=== PATIENT | male | born 1945 | race Caucasian/White ===

== ENCOUNTER 2018-11-05 15:06 | Emergency (ER) | payer OTHER ==
--- NOTE | 2018-11-05 15:09 | EDPHY ---
H & P Time Seen by Provider: 11/05/18 15:12 - Medical/Surgical History Hx Asthma: No Hx Chronic Respiratory Disease: No Hx Diabetes: Yes Hx Cardiac Disease: No Hx Renal Disease: No Hx Cirrhosis: No Hx Alcoholism: No Hx HIV/AIDS: No Hx Splenectomy or Spleen Trauma: No Other PMH: DM, HTN, CHF, - Social History Smoking Status: Former smoker Constitutional: Initial Vital Signs Temperature (C) 36.6 C 11/05/18 15:06 Heart Rate 76 11/05/18 15:06 Respiratory Rate 18 11/05/18 15:06 Blood Pressure 155/95 H 11/05/18 15:06 O2 Sat (%) 98 11/05/18 15:06 O2 Delivery Mode Nasal Cannula O2 (L/minute) 2 Allergies/Adverse Reactions: Penicillins Allergy (Verified 04/13/16 16:08) prazosin Allergy (Verified 04/13/16 16:14) Home Medications: Medication Instructions Recorded Acetaminophen [Tylenol 325mg (*)] 650 mg PO Q6 PRN 04/13/16 Aspirin [Aspirin 81mg (*)] 81 mg PO BID 04/13/16 Clindamycin 150 mg PO DAILY PRN 04/13/16 Finasteride [Proscar 5 MG (*)] 5 mg PO DAILY 04/13/16 Herbals/Supplements -Info Only 1 ea PO DAILY 04/13/16 Hydrocodone/Acetaminophen [[place] 1 - 2 tab PO Q6H PRN 04/13/16 5/325 (*)] Insulin NPH Human [humULIN N 100 35 units SC DAILY@00 PRN 04/13/16 UNITS/ML (*)] Insulin NPH Human [humULIN N 100 35 units SC DAILY@08 04/13/16 UNITS/ML (*)] Insulin Regular, Human [HUMULIN R] 35 unit SC DAILY18 04/13/16 Lisinopril [Zestril 20 mg (*)] 40 mg PO BID 04/13/16 Magnesium Oxide [Magnesium Oxide 400 mg PO HS 04/13/16 400 mg (*)] Multivitamins [Multivitamin (*)] 1 each PO DAILY 04/13/16 [place]-3 Fatty Acids [Fish Oil 1000 1,000 mg PO DAILY 04/13/16 mg (*)] Simvastatin [Zocor] 20 mg PO HS 04/13/16 Tamsulosin HCl [Flomax 0.4 MG (*)] 0.8 mg PO DAILY 04/13/16 Triamterene/Hydrochlorothiazid 1 each PO DAILY 04/13/16 [Triamterene-Hctz 37.5-25 mg Tb] amLODIPine BESYLATE [Norvasc 10 mg 10 mg PO DAILY 04/13/16 (*)] diphenhydrAMINE [Benadryl 25 MG 25 mg PO HS PRN 04/13/16 (*)] glipiZIDE [Glipizide] 10 mg PO BID 04/13/16 Acetaminophen [Tylenol 325mg (*)] 650 mg PO Q6 #0 tab 04/15/16 Docusate Sodium [Colace 100 MG (*)] 100 mg PO BID #0 cap 04/15/16 celeCOXIB [Celebrex (*)] 200 mg PO DAILY #14 cap 04/15/16 oxyCODONE IR [Oxycodone Ir (*)] 5 - 10 mg PO Q4 PRN #10 tab 04/15/16 Medical Decision Making - Diagnostics Imaging Results: Imaging Impressions Hip X-Ray 11/05/18 15:15 Impression: Acute minimally displaced proximal left femur fracture along the femoral stem of left total hip arthroplasty. Chest X-Ray 11/05/18 15:17 Impression: 1. Mild cardiac silhouette enlargement, with no evidence of CHF or focal infiltrate. 2. Age-indeterminate type III sprain injury of the left acromioclavicular joint. Clinical correlation is suggested. Pelvis CT 11/05/18 15:32 Impression: Status post prior remote left hip arthroplasty, with evidence of an acute longitudinally-oriented oblique partially comminuted and mildly displaced fracture adjacent to the left femoral intramedullary parveen. Findings were discussed with Arnie Mccrary MD at 16:43, on 11/05/2018. Imaging: I viewed and interpreted images myself ED Course/Re-evaluation: CHIEF COMPLAINT: "My right leg is fucked" HISTORY OF PRESENT ILLNESS: The patient is a 73 y/o male with a history of diabetes, chronic kidney disease, and prior left hip arthroplasty who arrives via EMS complaining of right hip pain secondary to a fall this afternoon. Per EMS, he tripped and fell in a parking lot and was on the ground for approximately 30 minutes before he called for assistance to get up. When they assisted him to standing he complained of severe right hip pain and could not bear weight. He denied head strike, loss of consciousness, or other injuries from the fall. No weakness or paresthesias. He received 10mg IM morphine en route for pain. He denies anticoagulants. REVIEW OF SYSTEMS: A comprehensive 10 system review of systems is otherwise negative aside from elements mentioned in the history of present illness and medical decision making. PHYSICAL EXAM: HR, BP, O2 Sat, RR. Temp noted General Appearance: Alert, well hydrated, appropriate, and non-toxic appearing. Head: Atraumatic without scalp tenderness or obvious injury Eyes: Pupils equal, round, reactive to light and accommodation, EOMI, no trauma , no injection. Nose: Atraumatic, no rhinorrhea, clear. Throat: Mucus membranes moist. Neck: Supple,nontender, no lymphadenopathy. Respiratory: No retractions, no distress, no wheezes, and no accessory muscle use. Lungs are clear to auscultation bilaterally. Cardiovascular: Regular rate and rhythm, no murmurs, rubs, or gallops. Good capillary refill all extremities. Right dorsalis pedis pulse intact. Gastrointestinal: Abdomen is soft, nontender, non-distended, no masses, no rebound, no guarding, no peritoneal signs. Musculoskeletal: Right leg slightly rotated externally, pain with ROM. 2+ lower extremity edema bilaterally with overlying cellulitis. Right knee abrasion. Other extremities atraumatic. Neurological: Alert, appropriate, and interactive. Nonfocal. Skin: No rashes, good turgor, no nodules on palpation. Past medical history: Diabetes type II on insulin, hypertension, BPH, chronic kidney disease, kidney stones, left subcapital hip fracture Past surgical history: Lithotripsy, left TKA, appendectomy, left total hip arthroplasty 2015 Family history: Noncontributory Social history: Lives in [place]. . Retired. PCP: Leandro Prior medical records reviewed including admission 04/13/16 for left hip fracture. DIAGNOSTICS/PROCEDURES/CRITICAL CARE TIME: Pelvis x-ray: no definite fracture Left hip x-ray: periprosthetic femur fracture Chest x-ray: no infiltrate Pelvis CT: left periprosthetic fracture DIFFERENTIAL DIAGNOSIS: The differential diagnosis for the patient's trauma included but was not limited to intracranial injury, long bone and pelvic bone fractures, spinal injury, intra-abdominal injury, and intra-thoracic injury. MEDICAL DECISION MAKING: This is a 73 y/o male with several comorbidities who presents with right hip pain secondary to a mechanical fall on the snow this afternoon. His right leg is slightly rotated externally and painful with any movement. He is neurovascularly intact. He has bilateral pedal edema below the level of the knee with overlying cellulitis. Plan for IV, labs, pelvis x-ray, and symptomatic management as needed. 100mg IV Fentanyl ordered for pain. As x-ray techs are taking imaging, patient complains of left hip pain rather than right hip pain. Initial pelvis x-ray shows possible ramus fracture, though it's inconclusive. Pelvis CT ordered for better evaluation as patient is a poor historian. Left hip x-ray shows periprosthetic fracture. Creatinine is 1.7. Consulted with Dr. Burns, orthopedist. He has reviewed images and will assess patient in the ED. Spoke with [facility]. Awaiting their decision on treatment here vs. transfer. 1624: Spoke with [facility]. Dr. Lawrence Chavez is the accepting physician and Dr. Silva will be the accepting orthopedist. Dr. Burns assessed patient in the ED and feels right leg and hip exam is benign. - Data Points Laboratory Results: Laboratory Results 11/05/18 15:40 11/05/18 15:40 11/05/18 11/05/18 11/05/18 15:43 15:40 15:40 WBC RBC Hgb POC Hgb 11.9 gm/dL L gm/dL (13.7-17.5) Hct POC Hct 35 % L % (40-51) MCV MCH MCHC RDW Plt Count MPV Neut % (Auto) Lymph % (Auto) [place] % (Auto) Eos % (Auto) Baso % (Auto) Nucleat RBC Rel Count Absolute Neuts (auto) Absolute Lymphs (auto) Absolute Monos (auto) Absolute Eos (auto) Absolute Basos (auto) Absolute Nucleated RBC Immature Gran % Immature Gran # PT 14.9 SEC SEC (12.0-15.0) INR 1.15 (0.83-1.16) APTT 26.4 SEC SEC (23.0-38.0) POC Sodium 143 mEq/L mEq/L (135-145) Sodium 139 mEq/L mEq/L (135-145) POC Potassium 3.9 mEq/L mEq/L (3.3-5.0) Potassium 4.1 mEq/L mEq/L (3.5-5.2) POC Chloride 107 mEq/L mEq/L (97-110) Chloride 110 mEq/L mEq/L (97-110) Carbon Dioxide 23 mEq/l mEq/l (22-31) Anion Gap 6 mEq/L mEq/L (6-14) POC BUN 28 mg/dL H mg/dL (7-23) BUN 32 mg/dL H mg/dL (7-23) Creatinine 1.7 mg/dL H mg/dL (0.7-1.3) POC Creatinine 1.7 mg/dL H mg/dL (0.7-1.3) Estimated GFR 40 Glucose 102 mg/dL H mg/dL (70-100) POC Glucose 103 mg/dL H mg/dL (70-100) Calcium 10.8 mg/dL H mg/dL (8.5-10.4) Phosphorus 2.7 mg/dL mg/dL (2.5-4.5) 11/05/18 15:40 WBC 8.90 10^3/uL 10^3/uL (3.80-9.50) RBC 4.01 10^6/uL L 10^6/uL (4.40-6.38) Hgb 11.7 g/dL L g/dL (13.7-17.5) POC Hgb Hct 35.1 % L % (40.0-51.0) POC Hct MCV 87.5 fL fL (81.5-99.8) MCH 29.2 pg pg (27.9-34.1) MCHC 33.3 g/dL g/dL (32.4-36.7) RDW 13.7 % % (11.5-15.2) Plt Count 255 10^3/uL 10^3/uL (150-400) MPV 8.8 fL fL (8.7-11.7) Neut % (Auto) 80.2 % H % (39.3-74.2) Lymph % (Auto) 13.1 % L % (15.0-45.0) Fisher % (Auto) 4.5 % % (4.5-13.0) Eos % (Auto) 1.0 % % (0.6-7.6) Baso % (Auto) 0.6 % % (0.3-1.7) Nucleat RBC Rel Count 0.0 % % (0.0-0.2) Absolute Neuts (auto) 7.14 10^3/uL H 10^3/uL (1.70-6.50) Absolute Lymphs (auto) 1.17 10^3/uL 10^3/uL (1.00-3.00) Absolute Monos (auto) 0.40 10^3/uL 10^3/uL (0.30-0.80) Absolute Eos (auto) 0.09 10^3/uL 10^3/uL (0.03-0.40) Absolute Basos (auto) 0.05 10^3/uL 10^3/uL (0.02-0.10) Absolute Nucleated RBC 0.00 10^3/uL 10^3/uL (0-0.01) Immature Gran % 0.6 % % (0.0-1.1) Immature Gran # 0.05 10^3/uL 10^3/uL (0.00-0.10) PT INR APTT POC Sodium Sodium POC Potassium Potassium POC Chloride Chloride Carbon Dioxide Anion Gap POC BUN BUN Creatinine POC Creatinine Estimated GFR Glucose POC Glucose Calcium Phosphorus Medications Given: Discontinued Medications Fentanyl (Sublimaze) 100 mcg IVP EDNOW ONE Stop: 11/05/18 15:34 Last Admin: 11/05/18 15:33 Dose: 100 mcg Sodium Chloride (Ns) 1,000 mls @ 0 mls/hr IV EDNOW ONE; Wide Open PRN Reason: Protocol Stop: 11/05/18 15:49 Last Admin: 11/05/18 15:49 Dose: 1,000 mls Point of Care Test Results: Chemistry 11/05/18 15:43 POC Sodium 143 mEq/L mEq/L (135-145) POC Potassium 3.9 mEq/L mEq/L (3.3-5.0) POC Chloride 107 mEq/L mEq/L (97-110) POC BUN 28 mg/dL H mg/dL (7-23) POC Creatinine 1.7 mg/dL H mg/dL (0.7-1.3) POC Glucose 103 mg/dL H mg/dL (70-100) ISTAT H&H 11/05/18 15:43 POC Hgb 11.9 gm/dL L gm/dL (13.7-17.5) POC Hct 35 % L % (40-51) Departure - Departure Disposition: [facility] Clinical Impression: Renal insufficiency Closed left femoral fracture Qualifiers: Encounter type: initial encounter Femur location: unspecified portion of femur Fracture morphology: other fracture Qualified Code(s): S72.8X2A - Other fracture of left femur, initial encounter for closed fracture Condition: Fair Referrals: Unknown,Unknown [Unknown] - As per Instructions Report Scribed for: Arnie Mccrary Report Scribed by: Nahomy Lemons Date of Report: 11/05/18 Time of Report: 15:19
[2018-11-05] MEDS ORDERED: fentaNYL 100 MCG/2 ML INJ ONE (15:26)
[2018-11-05] MEDS ORDERED: fentaNYL 100 MCG/2 ML INJ IVP ONE (15:33)
[2018-11-05] MEDS ORDERED: NS 1,000 ML IV ONE (15:48)
[2018-11-05 15:55] LABS: PLATELET COUNT 255 10^3/uL (150-400)
[2018-11-05 16:05] LABS: INR 1.15 (0.83-1.16); PROTIME(PATIENT) 14.9 SEC (12.0-15.0)
[2018-11-05 16:31] VITALS: BP 172/99
--- NOTE | 2018-11-05 17:13 | GCON ---
HISTORY OF PRESENT ILLNESS: Patient is a pleasant 73-year-old LHD male who presents today following a fall which occurred at approximately 2 p.m. while walking through the snow and landed on his left hip. The patient does have a prior history of injury to his left hip which occurred 2 years ago where a total hip arthroplasty was placed. At this time, he has severe left hip pain. He cannot bear weight to the extremity. He denies any other injury at this time. He denies any abnormal numbness or tingling, worsening change in heat or color of his extremities, worsening change in distal range of motion or strength. N.P.O. STATUS: Patient last ate at approximately 11:30 a.m. this morning. MEDICAL HISTORY: Medical history pertinent for diabetes, hypertension, BPH, CKD , kidney stones. PAST SURGICAL HISTORY: Pertinent for history of 2 left total knees, the last performed 6 years ago. An appendectomy over 20 years ago and a left hiptotal arthroplasty in 2016. SOCIAL HISTORY: The patient is . Retired. Lives in [place]. 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 He is full code. His primary care is performed through [facility]. FAMILY HISTORY: Denies h/o blood clots, bleeding disorders, CVD, cancer. CURRENT MEDICATIONS: Include insulin, Lasix, finasteride, tamsulosin, simvastatin, glipizide, Lipitor. ALLERGIES: Patient has an allergy to penicillin and prazosin. REVIEW OF SYSTEMS: Is negative except for as stated above in the HPI. PHYSICAL EXAMINATION: GENERAL: The patient is alert and oriented, able to respond appropriately to questions, in mild distress. HEENT: Normocephalic, atraumatic. EOMs intact, moist buccal mucosa. Patent nares. Hearing intact. NECK: No lymphadenopathy, full AROM, NTTP. Negative Lhermitte. Negative [place] B/L. CV: Nonlabored breathing. No diaphoresis. SPINE: NTTP throughout. Negative pelvic squeeze test. MUSCULOSKELETAL: Focalized exam of bilateral lower extremities: Right knee with a superficial, minor 0.5 cm abrasion with no abnormal bleeding/oozing/ discharge noted. No other lacerations or lesions noted. There is 1+ nonpitting edema bilaterally to his distal lower extremities. His left leg is shortened and mildly externally rotated. Bilateral venous stasis is seen. No erythema, edema, ecchymosis or calor otherwise noted. AROM of left hip severely limited by pain to the patient, but is able to attempt active extension and flexion of the left hip. He otherwise has full range of motion distally, 5/5 strength present distally. His calves are soft, supple, NTTP B/L with negative bilateral Homans, DNVI B/L with no focal deficits noted. All compartments soft with negative b/l passive stretch test. SKIN: No other rashes, lesions, or lacerations noted. NEUROLOGIC: Alert and oriented, able to respond appropriately to questions and commands. Secondary survey is negative except for as stated above. IMAGING: X-rays 2 views of patient's left hip show a periprosthetic fracture to his left femur around the stem. There is subsidence of the stem, c/w unstable prosthesis. Otherwise, no fractures, malalignments, or deformities are seen. CT of the patient's hip and pelvis shows a james-prosthetic fracture around the stem of his total hip arthroplasty. ASSESSMENT: Left hip periprosthetic, pertrochanteric fracture with subtrochanteric extension and unstable hip stem. PLAN: At this time, patient's physical exam findings and x-rays were explained at length to him and his . He is a [facility] patient, so at this time, through recommendation per [facility], they would like to accept him and transfer him to a [facility] facility for further evaluation and care. Dr. Jones Chavez will be the accepting physician and Dr. Silva will be the accepting orthopedic physician at [facility]. We will transfer him at the earliest convenience. Maintain n.p.o. status at this time. NWB to the left lower extremity. Recommend YOUSUF dc and SCDs for DVT prophylaxis as well as incentive spirometry. Dr Burns has explained that this kind of fracture will most likely require a revision ELIZABET. Advised patient and family to watch for any worsening pain, abnormal numbness or tingling, worsening change in heat or color of the extremity, worsening change in range of motion or strength and to seek immediate medical attention. Patient understands and agrees with this course of action. Follow up as needed and we appreciate the opportunity to assist in the care of this patient. The patient was seen and examined in conjunction with Dr. Burns. /[id number]/MODL MTDD
== END 2018-11-05 17:05 | disposition short-term general hospital (02) ==
LOC: EDUNIT# → EDBD
DX: S72.8X2A Other fracture of left femur, initial encounter for closed fracture (principal); I13.0 Hypertensive heart and chronic kidney disease with heart failure and stage 1 through stage 4 chronic kidney disease, or unspecified chronic kidney disease; N18.9 Chronic kidney disease, unspecified; I50.9 Heart failure, unspecified; E11.9 Type 2 diabetes mellitus without complications; W01.0XXA Fall on same level from slipping, tripping and stumbling without subsequent striking against object, initial encounter; Y92.481 Parking lot as the place of occurrence of the external cause; Y93.9 Activity, unspecified; Y99.9 Unspecified external cause status
CPT/HCPCS: 71045; 72192; 73502; 96374; 99285; J3010; 82435-PO; 82565-PO; 82947-PO; 84132-PO; 84295-PO; 84520-PO; 85014-ER

== ENCOUNTER 2019-01-08 19:44 | Inpatient (IN) | payer OTHER ==
--- NOTE | 2019-01-08 19:46 | EDPHY ---
H & P Time Seen by Provider: 01/08/19 19:45 HPI/ROS: Chief complaint. Hypoglycemia HPI. 73-year-old male here by EMS. He was found unconscious at his assisted. He was given glucagon. EMS arrived and then checked his blood sugar and found to be 63 after the glucagon. He was given oral glucose. Patient thinks that he got his insulin and did not eat. He now has no complaints and feels fine. No chest pain, shortness of breath, abdominal pain. Not ill. No fever. No recent change in dose of his insulin. ROS 10 systems were reviewed and negative with the exception of the elements mentioned in the history of present illness Past Medical/Surgical History: Diabetes, hypertension, congestive heart failure, chronic renal insufficiency, BPH, kidney stone, hip fracture, left TKA, appendectomy Social History: Single, nonsmoker, no alcohol Smoking Status: Former smoker Physical Exam: General Appearance: Alert well-developed male mild distress vital signs are stable Eyes: Pupils equal and round no pallor or injection. ENT, Mouth: Mucous membranes are moist. Respiratory: There are no retractions, lungs are clear to auscultation. Cardiovascular: Regular rate and rhythm. Gastrointestinal: Abdomen is soft and nontender, no masses, bowel sounds normal. Neurological: Awake and alert, sensory and motor exams grossly normal. Skin: Warm and dry, no rashes. Musculoskeletal: Neck is supple nontender. Extremities symmetrical, full range of motion. Left TKA Psychiatric: Patient is oriented X 3, there is no agitation. Constitutional: Initial Vital Signs Temperature (C) 36.7 C 01/08/19 19:48 Heart Rate 67 01/08/19 19:48 Respiratory Rate 20 01/08/19 19:48 Blood Pressure 120/83 H 01/08/19 19:48 O2 Sat (%) 92 01/08/19 19:48 O2 Delivery Mode Nasal Cannula O2 (L/minute) 2 Allergies/Adverse Reactions: Penicillins Allergy (Verified 01/08/19 19:47) prazosin Allergy (Verified 01/08/19 19:47) Home Medications: Medication Instructions Recorded Acetaminophen [Tylenol 325mg (*)] 650 mg PO Q6 PRN 04/13/16 Aspirin [Aspirin 81mg (*)] 81 mg PO BID 04/13/16 Clindamycin 150 mg PO DAILY PRN 04/13/16 Finasteride [Proscar 5 MG (*)] 5 mg PO DAILY 04/13/16 Herbals/Supplements -Info Only 1 ea PO DAILY 04/13/16 Hydrocodone/Acetaminophen [[place] 1 - 2 tab PO Q6H PRN 04/13/16 5/325 (*)] Insulin NPH Human [humULIN N 100 35 units SC DAILY@00 PRN 04/13/16 UNITS/ML (*)] Insulin NPH Human [humULIN N 100 35 units SC DAILY@08 04/13/16 UNITS/ML (*)] Insulin Regular, Human [HUMULIN R] 35 unit SC DAILY18 04/13/16 Lisinopril [Zestril 20 mg (*)] 40 mg PO BID 04/13/16 Magnesium Oxide [Magnesium Oxide 400 mg PO HS 04/13/16 400 mg (*)] Multivitamins [Multivitamin (*)] 1 each PO DAILY 04/13/16 [place]-3 Fatty Acids [Fish Oil 1000 1,000 mg PO DAILY 04/13/16 mg (*)] Simvastatin [Zocor] 20 mg PO HS 04/13/16 Tamsulosin HCl [Flomax 0.4 MG (*)] 0.8 mg PO DAILY 04/13/16 Triamterene/Hydrochlorothiazid 1 each PO DAILY 04/13/16 [Triamterene-Hctz 37.5-25 mg Tb] amLODIPine BESYLATE [Norvasc 10 mg 10 mg PO DAILY 04/13/16 (*)] diphenhydrAMINE [Benadryl 25 MG 25 mg PO HS PRN 04/13/16 (*)] glipiZIDE [Glipizide] 10 mg PO BID 04/13/16 Acetaminophen [Tylenol 325mg (*)] 650 mg PO Q6 #0 tab 04/15/16 Docusate Sodium [Colace 100 MG (*)] 100 mg PO BID #0 cap 04/15/16 celeCOXIB [Celebrex (*)] 200 mg PO DAILY #14 cap 04/15/16 oxyCODONE IR [Oxycodone Ir (*)] 5 - 10 mg PO Q4 PRN #10 tab 04/15/16 Medical Decision Making - Diagnostics Imaging Results: Chest x-ray interpreted by me is normal Procedures: IV normal saline Point of care glucose 110 Patient is given food ED Course/Re-evaluation: About 30 min after eating his blood sugar is rechecked and is down to 54. Patient is placed on a D10 drip. Recheck blood sugar is 79. Patient is arousable but not spontaneously conversational. The patient, his , and I discussed laboratory evaluation, treatment plan including recommendation for admission. They expressed understanding and agreement On re-evaluation again the patient is shaking. He now has a fever 38.4. Septic workup is undertaken. I consulted and discussed the case with , hospitalist who agrees to the admission and will have the patient placed in the ICU Differential Diagnosis: Initially seem that this was strictly hypoglycemia and due to too much insulin or long-acting glipizide. Now the patient is febrile. - Data Points Laboratory Results: Laboratory Results 01/08/19 19:55 01/08/19 19:55 01/08/19 01/08/19 01/08/19 21:30 21:15 20:09 WBC RBC Hgb Hct MCV MCH MCHC RDW Plt Count MPV Neut % (Auto) Lymph % (Auto) [place] % (Auto) Eos % (Auto) Baso % (Auto) Nucleat RBC Rel Count Absolute Neuts (auto) Absolute Lymphs (auto) Absolute Monos (auto) Absolute Eos (auto) Absolute Basos (auto) Absolute Nucleated RBC Immature Gran % Immature Gran # RBC/WBC/PLT Morphology Platelet Estimate Sodium Potassium Chloride Carbon Dioxide Anion Gap BUN Creatinine Estimated GFR Glucose POC Glucose 54 mg/dL L mg/dL 110 mg/dL H mg/dL (70-100) (70-100) Calcium Urine Color YELLOW Urine Appearance MODERATELY TURBID Urine pH 5.0 (5.0-7.5) Ur Specific [place] 1.019 (1.002-1.030) Urine Protein 3+ H (NEGATIVE) Urine Ketones NEGATIVE (NEGATIVE) Urine Blood NEGATIVE (NEGATIVE) Urine Nitrate NEGATIVE (NEGATIVE) Urine Bilirubin NEGATIVE (NEGATIVE) Urine Urobilinogen NEGATIVE EU EU (0.2-1.0) Ur Leukocyte Esterase 3+ H (NEGATIVE) Urine RBC 5-10 /hpf H /hpf (0-3) Urine WBC 50-182 /hpf H /hpf (0-3) Ur Epithelial Cells TRACE /lpf /lpf (NONE-1+) Urine Bacteria 1+ /hpf H /hpf (NONE SEEN) Hyaline Casts 5-15 /lpf /lpf (0-1) Urine Mucus 1+ /lpf /lpf (NONE-1+) Urine Glucose NEGATIVE (NEGATIVE) 01/08/19 01/08/19 19:55 19:55 WBC 5.35 10^3/uL 10^3/uL (3.80-9.50) RBC 3.88 10^6/uL L 10^6/uL (4.40-6.38) Hgb 9.3 g/dL L g/dL (13.7-17.5) Hct 31.2 % L % (40.0-51.0) MCV 80.4 fL L fL (81.5-99.8) MCH 24.0 pg L pg (27.9-34.1) MCHC 29.8 g/dL L g/dL (32.4-36.7) RDW 16.2 % H % (11.5-15.2) Plt Count 385 10^3/uL 10^3/uL (150-400) MPV 9.1 fL fL (8.7-11.7) Neut % (Auto) 87.5 % H % (39.3-74.2) Lymph % (Auto) 8.6 % L % (15.0-45.0) [place] % (Auto) 2.2 % L % (4.5-13.0) Eos % (Auto) 1.1 % % (0.6-7.6) Baso % (Auto) 0.2 % L % (0.3-1.7) Nucleat RBC Rel Count 0.0 % % (0.0-0.2) Absolute Neuts (auto) 4.68 10^3/uL 10^3/uL (1.70-6.50) Absolute Lymphs (auto) 0.46 10^3/uL L 10^3/uL (1.00-3.00) Absolute Monos (auto) 0.12 10^3/uL L 10^3/uL (0.30-0.80) Absolute Eos (auto) 0.06 10^3/uL 10^3/uL (0.03-0.40) Absolute Basos (auto) 0.01 10^3/uL L 10^3/uL (0.02-0.10) Absolute Nucleated RBC 0.00 10^3/uL 10^3/uL (0-0.01) Immature Gran % 0.4 % % (0.0-1.1) Immature Gran # 0.02 10^3/uL 10^3/uL (0.00-0.10) RBC/WBC/PLT Morphology TNP Platelet Estimate TNP Sodium 135 mEq/L mEq/L (135-145) Potassium 4.0 mEq/L mEq/L (3.5-5.2) Chloride 106 mEq/L mEq/L (97-110) Carbon Dioxide 22 mEq/l mEq/l (22-31) Anion Gap 7 mEq/L mEq/L (6-14) BUN 21 mg/dL mg/dL (7-23) Creatinine 1.2 mg/dL mg/dL (0.7-1.3) Estimated GFR 59 Glucose 85 mg/dL mg/dL (70-100) POC Glucose Calcium 10.1 mg/dL mg/dL (8.5-10.4) Urine Color Urine Appearance Urine pH Ur Specific [place] Urine Protein Urine Ketones Urine Blood Urine Nitrate Urine Bilirubin Urine Urobilinogen Ur Leukocyte Esterase Urine RBC Urine WBC Ur Epithelial Cells Urine Bacteria Hyaline Casts Urine Mucus Urine Glucose Medications Given: Dextrose (D10w) 1,000 mls @ 200 mls/hr IV CONT EVETTE Stop: 07/07/19 21:44 Last Admin: 01/08/19 21:44 Dose: 1,000 mls Point of Care Test Results: Chemistry 01/08/19 01/08/19 21:30 20:09 POC Glucose 54 mg/dL L mg/dL 110 mg/dL H mg/dL (70-100) (70-100) Departure - Departure Disposition: [facility] Clinical Impression: Hypoglycemia Condition: Good
[2019-01-08 20:03] LABS: PLATELET COUNT 385 10^3/uL (150-400)
[2019-01-08] MEDS ORDERED: KETOROLAC 15 MG/1 ML SDV ONE (20:56)
[2019-01-08] MEDS ORDERED: D10W 1,000 ML IV SCH (21:45)
[2019-01-08] MEDS ORDERED: NS 2,400 ML IV ONE (22:22)
[2019-01-08] MEDS ORDERED: ACETAMINOPHEN 325 MG TAB PO PRN (22:48)
[2019-01-08] MEDS ORDERED: ONDANSETRON 4 MG/2 ML VIAL IVP PRN (22:48)
[2019-01-08] MEDS ORDERED: ONDANSETRON DISINTEGRATING 4 MG TAB PO PRN (22:48)
[2019-01-08 22:50] LABS: INR 1.15 (0.83-1.16); PROTIME(PATIENT) 14.2 SEC (12.0-15.0)
[2019-01-08] MEDS ORDERED: D50W 25 GM/50 ML SYR IVP PRN (22:55)
[2019-01-08] MEDS ORDERED: ACETAMINOPHEN 650 MG SUPP PR ONE ×2 (22:58→22:59)
[2019-01-09] MEDS ORDERED: FUROSEMIDE 20 MG/2 ML VIAL IVP ONE (01:42)
--- NOTE | 2019-01-09 02:39 | GHP ---
[f rep st] HISTORY AND PHYSICAL DATE OF ADMISSION: 01/08/2019 SOURCE: The patient is not able to provide any history at this time as he is slightly obtunded on Bi PAP. EMR was reviewed and case discussed with the ED provider. CHIEF COMPLAINT: Altered mental status, hypoglycemia. HISTORY OF PRESENT ILLNESS: This is a 73-year-old gentleman with a past medical history significant for diabetes type 2 on insulin, glipizide, HTN, CHF, chronic pain, BPH, anemia of chronic disease, wh o presents to the emergency department today via EMS after he was found unconscious in the nursing ho dc. The patient was given glucagon and EMS was called. Upon arrival, they found his blood sugar to be in the 60s. Patient with some improvement in his mentation, is given some oral glucose. The marcial ent reported to the ED provider that he does not think he ate and received his insulin. At that time he had no complaints of fevers, chills, nausea, vomiting, abdominal pain, or feeling ill before this morning. In the emergency department the patient was monitored and given a meal. However, his blood sugars ag ain took a dip into the 50s. The patient was started on D10; however, over the course of his stay, beatris is mentation did continue to wax and wane. He also had an episode of rigors and a fever. The patien t does have a chronic indwelling Garcia catheter for history of BPH and bladder outlet obstruction. Beatris e also developed increasing work of breathing and required placement on BiPAP. The patient's respira tory symptoms appear to coincide with the completion of IV fluid bolus for concerns of septic process . REVIEW OF SYSTEMS: Unable to obtain at this time due to patient's mentation. ALLERGIES: Penicillin and Prazosin. HOME MEDICATIONS: Med rec is not yet complete by Pharmacy, but review of available med list: Oxy-IR , glipizide, Benadryl, Celebrex, amlodipine, triamterene/HCTZ, tamsulosin, simvastatin, fish oil, mul tivitamin, magnesium oxide, lisinopril, regular insulin 35 units at 6, NPH 35 units twice daily and p .r.n. [place], enzyme Co-Q10, glucosamine, Super DHA, finasteride, Colace, clindamycin, p.r.n. aspirin and Tylenol. PAST MEDICAL HISTORY: Significant for diabetes type 2 insulin dependent, but continued use of oral a gent glipizide, CKD stage 3, HTN, CHF, chronic pain on chronic narcotic therapy, anemia of chronic di sease, BPH, osteoarthritis and kidney stones. PAST SURGICAL HISTORY: Significant for lithotripsy, left total knee arthroplasty, appendectomy, left hip ORIF following a fall. FAMILY HISTORY: Father due to metastatic melanoma. Mother due to history of CVA. SOCIAL HISTORY: Patient is . Retired. Residing in a correction. He does not smoke, drink , or utilize any illicit drugs. COR STATUS: Full. PHYSICAL EXAMINATION: VITAL SIGNS: Upon arrival to the emergency department: Blood pressure is 120 /83, heart rate 67, respiratory rate 20, O2 sat 92% on room air, temperature 36.7. Current available vitals: Blood pressure is 173/79, heart rate is 96, respiratory rate 33, O2 sat 97% on CPAP. GENER AL: No acute distress. Frail, elderly, pale-appearing gentleman is on BiPAP. He will open his eyes but will not keep them open with verbal and physical touch. HEAD: Normocephalic, atraumatic. EYES : No apparent scleral icterus. No drainage. Unable to assess pupils at this time as patient is not able to keep his eyes open. ENT: Patient is edentulous. Dry mucous membranes. No nasal discharge . BiPAP in place. NECK: Supple. Trachea midline. Excess of soft tissue is present. CV: Regular rate and rhythm. Limited cardiac exam due to patient's respiratory status and upper airway noises. No apparent rubs or gallops appreciated. RESPIRATORY: Unlabored breathing. BiPAP in place. Dimin ished breath sounds diffusely. Crackles in the bases. ABDOMEN: Obese and mildly distended but soft . Hypoactive bowel sounds present. : No apparent suprapubic tenderness to palpation. Garcia cath eter in place. EXTREMITIES: Patient with trace to 1+ lower extremity edema. He has 2+ pedal pulses bilaterally and symmetric. Cap refill is less than 2 seconds. SKIN: No apparent rashes or sores. He does have some excoriations on both shins. Patient with pallor. NEURO: Limited exam due to pat ient's somnolence. PSYCH: Limited exam due to patient's somnolence. LABORATORY STUDIES: WBC 5.35, H and H 9.3 and 31.2, MCV of 80.4, platelet count is 385, neutrophil p ercent 87.5. No bands. PT is 14.2, INR is 1.15, PTT is 29.8. Lactic acid 1.5. VBG pending. Sodium 135, potassium 4.0, chloride 106, CO2 is 22, anion gap is 7, BUN is 21, creatinine 1.2, baseli ne creatinine 1.1, GFR 59, glucose 85. A1c 7.2. Calcium is 10.1, total bilirubin 0.2. The patient with serial blood sugars. He did have a drop into the 50s while on D10; has improved. Most recently is 148 on D10 at 200 mL/h. UA: Turbid urine, pH of 5.0, specific gravity 1.019, protein 3+, no ketones, leuk esterase 3+, RBCs 5-10, WBCs 50-182, trace epithelial cells, 1+ bacteria, 5-15 casts, mucus 1+, negative glucose. Chest x-ray: Imaging report was reviewed. Cardiomegaly with findings suggestive of heart failure, f luid overload, however, cannot rule out superimposed pneumonia. CT head negative. Preliminary report negative for any evidence of acute process. Bedside tele shows normal sinus rhythm in the 80s. No acute changes. ASSESSMENT AND PLAN: A 73-year-old gentleman who presents from his correction altered and with hyp oglycemia and subsequently developed respiratory distress. 1. Acute hypoxic respiratory failure. The patient continues to require BiPAP. He does have evidenc e of fluid overload as well as potential pneumonia. Unclear if the patient may have aspirated while he was unresponsive due to his hypoglycemia. The patient has been started on Rocephin. The patient continues to require D10 supplementation. Will diurese as appropriate. 2. Acute metabolic encephalopathy, likely multifactorial including patient's hypoglycemia and due to infectious process. The patient with potential for a pneumonia as well as a urinary tract infection , however, he does have a chronic indwelling Garcia catheter and this was not a clean sample. The pat ient has been started on Rocephin, which should be adequate for both respiratory and urinary coverage at this time pending repeat urinary sampling after a catheter replacement. The patient's mentation remains waxing and waning despite correction of his blood sugars at this time. 3. Hypoglycemia. The patient reported that he does not believe that he ate before he received his i nsulin. Additionally, he has chronic renal insufficiency and is on glipizide which has potential to have decreased clearance. We will hold patient's insulin and oral agents at this time. Monitor seri al blood sugars and try to titrate down off the D10. 4. Pyuria. The patient did not have any complaints of symptoms. He does have a chronic indwelling Garcia catheter, which has not yet been changed prior to arrival from the ED. Will need to resample u rine specimen but lower concerns for an acute urinary infectious process in the setting of a chronic indwelling Garcia will repeat and continue Rocephin as noted above. 5. Acute congestive heart failure exacerbation. Unclear if patient has a systolic or diastolic dysf unction at this time with known CHF. The patient had required D10 at a high rate to maintain his sug ars which are now improving. Additionally the patient did receive a fluid bolus. Diuresis as tolera huey by blood pressures. 6. Sepsis without acute organ dysfunction. Patient does qualify with tachycardia, tachypnea, fever. He does not have a leukocytosis. Lactate is within normal limits. He did receive a fluid bolus. Cultures have been obtained. The patient has been started on Rocephin for respiratory and urinary co verage pending additional studies as noted above. A respiratory PCR has also been ordered. CHRONIC MEDICAL ISSUES: 1. Diabetes type 2. A1c is fairly well controlled. Holding patient's insulin and glipizide at this time. I suspect that a long-term patient would benefit from discontinuation of the glipizide given his history of chronic kidney insufficiency. Continue with Accu-Cheks as noted above. 2. Benign essential hypertension. Blood pressures are variable slightly but at this time does not r equire additional treatment. Hydralazine will be made available p.r.n. 3. Chronic pain. Holding narcotics at this time as patient's mentation is waxing and waning. 4. Benign prostatic hypertrophy. Continue with Garcia, however, will plan to have that replaced. 5. Osteoarthritis. Supportive care. 6. Chronic kidney disease, stage 3. Baseline creatinine. Continue to monitor. 7. Anemia of chronic disease. Patient without any evidence of active bleeding at this time. Contin ue to monitor H and H in the morning. 8. Fluid, electrolyte, nutrition. The patient has received bolus dosing as well as D10 IV. We will try to titrate down. Lasix as noted above. Monitor electrolytes, replace if needed. ADA diet if p atient's mentation is a safe enough for swallow. 9. COR status is full. 10. Disposition: The patient admitted to inpatient status in the ICU as he does require frequent Ac cu-Cheks and additional management of his respiratory status and treatment. /[id number]/MODL
[2019-01-09] MEDS ORDERED: FUROSEMIDE 20 MG/2 ML VIAL ONE (03:55)
[2019-01-09 06:55] LABS: PLATELET COUNT 360 10^3/uL (150-400)
[2019-01-09] MEDS: ENOXAPARIN 40 MG/0.4 ML SYR SC SCH (10:00)
--- NOTE | 2019-01-09 10:21 | PDMN ---
Medical Necessity Medical necessity: Pt meets IP criteria as of 01/08/19 per MCG M-160 (Sepsis) A-3 days; inpatient for altered mental status, hypoglycemia, respiratory failure requiring bipap, fever, tachycardia, pyuria, acute CHF exacerbation, sepsis. Comorbid insulin dependent diabetes, chronic pain, BPH, OA, chronic anemia, and CKD III. Anticipate > 2 mn for ongoing management of sepsis.
--- NOTE | 2019-01-09 13:28 | ASMTCMCOM ---
CM Note CM Note Notes: Patient admitted for Hypoglycemia and AMS. He was admitted from [facility] where he was at one point living there LTC but recently transitioned to rehab for further therapy. Updated notes sent to Jenni at [facility]. Jenni will need to contact [facility] and confirm is it okay for him to return for further rehab. Met with patient, he is in agreement with returning to [facility]. Also LVM for , Omer #[phone]. Await c/b from [facility] to confirm we are all set for a return. Plan: Hopefully [facility] Date Signed: 01/09/2019 01:27 PM Electronically Signed By:Antoinette Sullivan RN
--- NOTE | 2019-01-09 14:20 | ECHO ---
[email or web address] [address] [address] Main: [phone] Echocardiography Examination Transthoracic Name: LEAH CORONA MR#: [id number] Study Date: 01/09/2019 Study Time: 07:39 AM Date of : 1945 Age: 73 year(s) Height: 177.8 cm (70 in.) Weight: 81.65 kg (180 lb.) BSA: 2 m2 Gender: Male Examination: Echo Indication: Cardiac: dyspnea, hypoxia, CHF Image Quality: Adequate Contrast: Requested by: ?? BP: 101 mmHg/53 mmHg Heart Rate: 68 bpm Rhythm: Normal sinus rhythm Indication: Cardiac: dyspnea, hypoxia, CHF Procedure Staff Referring Physician: 5Th Grade Teacher: Nenita Trujillo [facility] Reading Physician: Dylon Arellano MD Requesting Provider: Amina Zuluaga Indication: Cardiac: dyspnea, hypoxia, CHF Measurements Chambers AV/MV Label Value Normal Value Label Value Normal Value IVSd, 2D 1.3 cm (0.6cm - 1.1cm) AV PGmax 11 mmHg LVDd, 2D 5.2 cm (4.2cm - 5.9cm) AV Vmax, Caliper 1.66 m/s (1m/s - 1.7m/s) LVDs, 2D 3.3 cm (2.1cm - 4cm) PHONG D (continuity eq. 2.4 cm2 LVEF, 2D 66 % (54% - 74%) Vmax) LVEF, BP 61 % (55% - 70%) MV A Vmax 1.02 m/s LVEF, MOD2 58 % (55% - 70%) MV DT 225 ms LVEF, MOD4 65 % (55% - 70%) MV E' lateral 0.1 m/s LVOT PGmax 5 mmHg MV E' mean 0.08 m/s LVOT Vmax 1.13 m/s (0.7m/s - 1.1m/s) MV E' septal 0.05 m/s LVOTd 2.1 cm (1.9cm - 2.1cm) MV E Vmax 0.72 m/s LVPWd, 2D 1 cm (0.6cm - 1cm) MV E/A 0.71 RVDd, 2D 3.4 cm (1.9cm - 3.8cm) MV E/E' lateral 7.2 TAPSE 2.6 cm MV E/E' mean 9.6 LA Area, A2C 20.6 cm2 (0cm2 - 20cm2) MV E/E' septal 13.2 (0.45 - 1.25) LA Volume, A2C 56 ml (18ml - 58ml) TV/PV LADs, 2D 3.2 cm (3cm - 4cm) Label Value Normal Value RA Area 18.8 cm2 PV PGmax 4 mmHg Additional Vessels PV Vmax, Caliper 0.94 m/s (0.6m/s - 0.9m/s) Label Value Normal Value Patient: LEAH CORONA Study Date: 01/09/2019 Page 1 of 3 07:39 AM AoAsc 3.3 cm AoRoot, 2D 3.4 cm (1.4cm - 2.6cm) Conclusions Left Ventricle: Left ventricle is normal in size. Normal global systolic left ventricular function. There is mild concentric left ventricular hypertrophy. Right Ventricle: Pulmonary artery pressure cannot be obtained. Mitral Valve: Mitral valve appears structurally normal. Trivial mitral regurgitation. Aortic Valve: Aortic leaflets are structurally normal. Trivial aortic regurgitation is present. There is no aortic stenosis. Findings Left Ventricle: Left ventricle is normal in size. Normal global systolic left ventricular function. EF evaluated by visual assessment. There is mild concentric left ventricular hypertrophy. There is no regional wall motion abnormalities. Left ventricular diastolic function parameters are normal. Right Ventricle: Normal size right ventricle. Right ventricular wall thickness is normal. Right ventricular systolic function is normal. Pulmonary artery pressure cannot be obtained. Left Atrium: The left atrium is normal in size. Right Atrium: The right atrium is borderline dilated. Mitral Valve: Mitral valve appears structurally normal. Trivial mitral regurgitation. No mitral valve stenosis. There is mild mitral thickening. Aortic Valve: Aortic leaflets are structurally normal. Trivial aortic regurgitation is present. There is no aortic stenosis. Aortic leaflets exhibit mild calcification. The aortic valve is trileaflet. Tricuspid Valve: Tricuspid valve leaflets are normal in appearance and function. No tricuspid regurgitation. No tricuspid valve stenosis. Pulmonic Valve: Pulmonic leaflets exhibit normal cuspal separation. No pulmonic valve regurgitation is evident. There is no pulmonic valve stenosis. Aorta: The aorta is normal. The aortic root size in 2D measures 3.4 cm. The aortic root exhibits normal size. The ascending aorta measures 3.3 cm. Aorta Measurements AoRoot, 2D is 3.4 cm. Pulmonary Artery: The pulmonary artery morphology appears normal. IVC: Patient: LEAH CORONA Study Date: 01/09/2019 Page 2 of 3 07:39 AM The inferior vena cava is normal in size and course. Pericardium: No pericardial effusion. There is a pleural effusion present. Exam Details Procedure Ordered: Echo Procedure Status: Routine study Image Quality: Adequate Facility Location: Cardiac Echo 1 (No Signature Object) Patient: LEAH CORONA Study Date: 01/09/2019 Page 3 of 3 07:39 AM [id number]
--- NOTE | 2019-01-09 16:32 | CPEKG ---
Test Reason : OPEN Blood Pressure : / mmHG Vent. Rate : 063 BPM Atrial Rate : 064 BPM P-R Int : 215 ms QRS Dur : 080 ms QT Int : 383 ms P-R-T Axes : -12 025 044 degrees QTc Int : 393 ms Sinus rhythm Atrial premature complex Borderline prolonged CO interval Confirmed by Dylon Arellano ([id number]) on 01/09/2019 4:31:34 PM Referred By: Amina Zuluaga Confirmed By:Dylon Arellano
[2019-01-09] MEDS ORDERED: POLYETHYLENE GLYCOL 3350 17 GM PKT PO PRN (17:17)
--- NOTE | 2019-01-09 17:31 | HOSPPROG ---
Hospitalist Progress Note Assessment/Plan: 73 yo M w dm and indwelling scott a/w hypoglycemia, sepsis sepsis: fever, source uti: scott changed ceftriaxone dm: restart insulin ?pneumonia: unlikely proph: enox dispo: tramsfer to med surg Subjective: case d/w dr garza. feels considerably better Objective: Vital Signs Temp Pulse Resp BP Pulse Ox 36.8 C 66 22 H 118/73 90 L 01/09/19 16:00 01/09/19 16:00 01/09/19 16:00 01/09/19 16:00 01/09/19 16:00 Microbiology 01/08/19 23:20 Respiratory Panel (PCR) - Final Nasal, Sinus - Swab No Organism Detected By Pcr Laboratory Results 01/09/19 06:15 01/09/19 04:44 01/08/19 01/09/19 01/10/19 05:59 05:59 05:59 Intake Total 756 900 Output Total 550 650 Balance 206 250 PT 14.2 SEC (12.0-15.0) 01/08/19 19:55 INR 1.15 (0.83-1.16) 01/08/19 19:55 - Physical Exam Constitutional: no apparent distress, appears nourished Eyes: PERRL, anicteric sclera Ears, Nose, Mouth, Throat: moist mucous membranes, hearing normal Cardiovascular: regular rate and rhythym, no murmur, rub, or gallop Respiratory: no respiratory distress, no rales or rhonchi Gastrointestinal: normoactive bowel sounds, soft, non-tender abdomen Genitourinary: no bladder fullness Skin: warm, normal color Musculoskeletal: full muscle strength, no muscle tenderness Neurologic: AAOx3, sensation intact bilaterally Psychiatric: interacting appropriately Lymph, Heme, Immunologic: no cervical LAD ICD10 Worksheet Patient Problems: Problems Problem Status Onset Hypoglycemia Acute Subcapital fracture of left hip Acute
[2019-01-09] MEDS: INSULIN REGULAR HUMAN 100 UNIT/ML UNIT SC SCH ×2 (17:35→18:10)
[2019-01-09] MEDS ORDERED: MAGNESIUM HYDROXIDE 30 ML UDCUP PO PRN (17:45)
[2019-01-09] MEDS: CARVEDILOL 25 MG TAB PO SCH (19:59)
[2019-01-09] MEDS ORDERED: TAMSULOSIN HCL 0.4 MG CAP PO SCH (21:00)
--- NOTE | 2019-01-09 23:29 | GCON ---
[f rep st] CONSULTATION PULMONARY CRITICAL CARE CONSULTATION DATE OF CONSULTATION: 01/09/2019 REASON FOR CONSULTATION: Abnormal mental status, hypoglycemia, pulmonary infiltrates. HISTORY: The patient is a pleasant 73-year-old with multiple medical problems. He has recently been at [facility], today was to be his last day before going home. Yesterday, he was noted to have d ecreased mental status, found to be unconscious. Hypoglycemia was suspected. He was apparently give n glucagon. He was transported to the emergency department by the paramedics. Blood sugars were in the 60s. He was given some oral glucose and took some food. However, subsequent blood sugars were i n the 50s. The patient was started on D10. Blood pressure was noted to be somewhat low and he was g iven intravenous fluids. He subsequently had increased hypoxemia and work of breathing and was place d briefly on BiPAP. Chest x-ray showed possible bibasilar infiltrates. Pneumonia could not be exclu ded. He was admitted to the intensive care unit on step-down status for further observation. He was given antibiotics in the emergency department for his possible pneumonia. He was kept initially on D10. In the intensive care unit, he has done well. He is awake and alert, has had no further significant problems with hypoglycemia. He denies fevers, chills, or sweats. He denies cough or pulmonary conge stion. PAST MEDICAL HISTORY: Remarkable for insulin-requiring diabetes, systemic hypertension, chronic gurvinder l insufficiency, congestive heart failure, a hip fracture and left TKA in 2016. He recently fell on November 05 and broke his femur below his previously repaired hip. He was transferred from our [facility] ency department to [facility] for surgical repair. This was accomplished at [facility]. He was subsequently discharged to [facility] and was supposed to have gone home today. Other medical problems include hyperlipidemia, prostatism, and constipation. MEDICATIONS: On admission included insulin, Humulin 20 at night and 60 in the morning, along with 10 units at noon. Other medications included amlodipine, simvastatin, Proscar, cathartics p.r.n., Flom ax, iron, carvedilol, and aspirin. DRUG ALLERGIES: Penicillins, prazosin. SOCIAL HISTORY: The patient is , lives with his . 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 He smoked minimally in the distant past. S ignificant alcohol is negative. They have 1 dog, 2 cats. FAMILY HISTORY: Noncontributory. REVIEW OF SYSTEMS: A 10-point review of systems is negative except as mentioned in the HPI and PMH. PHYSICAL EXAMINATION: GENERAL: Reveals a pleasant gentleman who is conversant and appropriate. He is slightly forgetful on certain questions. VITAL SIGNS: Blood pressure is 113/61, heart rate 66 wi th sinus rhythm on the monitor. He is on room air currently. He previously was on 2 L. Respiratory rate is 18. He is afebrile. HEENT: Unremarkable for lymphadenopathy or thyromegaly. There are no signs of head trauma. The neck is not tender. There is no jugular venous distention, lymphadenopat hy, or thyromegaly. CHEST: Clear anteriorly. Breath sounds are diminished at the bases. There are no significant rales, no wheezes, no rhonchi with cough. HEART: Regular in rate and rhythm. There is a soft systolic murmur, no gallop. ABDOMEN: Soft, nontender. Bowel sounds are present. EXTREM ITIES: Unremarkable for edema, cords, or tenderness. He was not ambulated. NEUROLOGIC: Examinatio n is grossly within normal limits. He moves all extremities without problems. There are no cranial nerve abnormalities. Mentation is intact. He is oriented x3, but forgetful on some details and defe rs to his . ASSESSMENT: 1. Abnormal mental status/found down. The etiology for this appears to have been hypoglycemia. The cause of his hypoglycemia is unclear. Excess insulin compared to oral caloric intake is likely the etiology. This subsequently resulted in his abnormal mental status and decreased level of consciousn ess. 2. Acute respiratory failure. This was not a problem initially but became a problem in the emergenc y department after receiving intravenous fluids. Volume overload appears to have been the etiology. He was briefly on BiPAP. Respiratory failure and hypoxemia have resolved. X-ray is abnormal with s ome bibasilar infiltrates. However, pneumonia clinically seems unlikely as his examination is negati ve for usual signs and symptoms of pneumonia, he has no fever and no leukocytosis, and no chest sympt omatology. Respiratory panel is negative. 3. Possible infection. Please see the comments above regarding possible pneumonia. He was started on Rocephin for this. He also has white blood cells in his urine and urine leukocyte esterase was po sitive. Urine culture is growing 2 colony types, greater than 100,000 organisms each. A urinary tra ct infection is the most likely infectious etiology here. ID and sensitivities will be awaited. Cur rent antibiotics will be continued. 4. Insulin-dependent diabetes. He came in hypoglycemic. He is on relatively high doses of insulin as an outpatient. He has not had subsequent hypoglycemia since admission. Off-insulin glucoses toda y have ranged from 120 to 170. These are being followed closely. No insulin is being prescribed cur rently. 5. Hypertension. Blood pressures are normal so far without specific antihypertensive therapy. His outpatient medicines have not been restarted. 6. Prophylaxis: The patient is on Lovenox. He is eating. GI prophylaxis is not indicated. PLAN: The patient will be kept in the intensive care unit on step-down status. Antibiotics will be continued with ceftriaxone. Chest x-ray and laboratory will be followed. Glucoses will be followed. Further plans and recommendations will be made based on his progress over the next 12 to 24 hours. /[id number]/MODL
[2019-01-10 05:25] LABS: PLATELET COUNT 314 10^3/uL (150-400)
[2019-01-10] MEDS: CARVEDILOL 25 MG TAB PO SCH (07:56)
[2019-01-10] MEDS: ENOXAPARIN 40 MG/0.4 ML SYR SC SCH (07:58)
[2019-01-10] MEDS ORDERED: ASCORBIC ACID 500 MG TAB PO SCH (09:00)
[2019-01-10] MEDS ORDERED: INSULIN NPH HUMAN 100 UNITS/ML SYR SC SCH ×2 (09:00→12:00)
[2019-01-10] MEDS ORDERED: FINASTERIDE 5 MG TAB PO SCH (09:00)
[2019-01-10] MEDS ORDERED: CYANO/VITAMIN B12 1000 MCG TAB PO SCH (09:00)
[2019-01-10] MEDS ORDERED: ACETIC ACID IRR SOLN 0.25% 1,000 ML BTL IRR SCH (09:00)
[2019-01-10] MEDS ORDERED: FERROUS SULFATE 325 MG TAB PO SCH (09:00)
[2019-01-10] MEDS ORDERED: ATORVASTATIN CALCIUM 10 MG TAB PO SCH (09:00)
[2019-01-10] MEDS ORDERED: Herbals/Supplements -Info Only PO SCH (09:00)
[2019-01-10] MEDS ORDERED: MULTIVITAMINS 1 EACH TAB PO SCH (09:00)
[2019-01-10] MEDS ORDERED: CHOLECALCIFEROL VIT D3 1,000 UNITS TAB PO SCH (09:00)
--- NOTE | 2019-01-10 15:29 | HOSPPROG ---
Hospitalist Progress Note Assessment/Plan: 73 yo M w dm and indwelling scott a/w hypoglycemia, sepsis sepsis: fever, source uti: scott changed enterococcus noted macrobid X 5 days dm: restart insulin ?pneumonia: cxr and exam s/o LLL pneumonia has received three days ceftriaxone- 2 add'l LQ proph: enox dispo: await insurance auth for transfer back to Subjective: cxr w persistent LLL infiltrate Objective: Vital Signs Temp Pulse Resp BP Pulse Ox 36.9 C 71 14 129/72 H 91 L 01/10/19 12:00 01/10/19 12:00 01/10/19 12:00 01/10/19 12:00 01/10/19 12:00 Laboratory Results 01/10/19 04:53 01/10/19 04:53 01/09/19 01/10/19 01/11/19 05:59 05:59 05:59 Intake Total 756 2450 Output Total 550 1550 Balance 206 900 PT 14.2 SEC (12.0-15.0) 01/08/19 19:55 INR 1.15 (0.83-1.16) 01/08/19 19:55 - Physical Exam Constitutional: no apparent distress, appears nourished Eyes: PERRL, anicteric sclera Ears, Nose, Mouth, Throat: moist mucous membranes, hearing normal Cardiovascular: regular rate and rhythym, no murmur, rub, or gallop Respiratory: other (crackles L base) Gastrointestinal: normoactive bowel sounds, soft, non-tender abdomen Genitourinary: no bladder fullness, scott in urethra Skin: warm, normal color Musculoskeletal: full muscle strength ICD10 Worksheet Patient Problems: Problems Problem Status Onset Hypoglycemia Acute Subcapital fracture of left hip Acute
--- NOTE | 2019-01-10 16:08 | PDIAF ---
- Diagnosis Diagnosis: fever, sepsis, pneumonia Code Status: Full Code - Medication Management Additional Medication Instructions: levaquin and macrobid through 01/13 Discharge Medications: electronically signed and located in the Home Medication List. - Orders Services needed: Registered Nurse, Certified Deputy Director Of Finance, Master Wage Hand , Physical Therapy, Occupational Therapy, Speech Language Pathologist - Follow Up Care Current Providers and Referrals: Patient,NotPresent [Unknown] - As per Instructions
[2019-01-10 16:27] VITALS: BP 114/53
[2019-01-10] MEDS ORDERED: NITROFURANTOIN MACROBID 100 MG CAP PO ONE (16:30)
--- NOTE | 2019-01-10 16:36 | ASMTLACE ---
LACE Length of stay for Answers: 2 days current admission Acuity / Level of Answers: Yes Care: Did the patient have an inpatient admission? Comorbidities - select Answers: Congestive heart failure all that apply Diabetes (uncontrolled or controlled) Mild liver or renal disease Opioid dependence / Chronic pain Other Notes: HTN # of Emergency department Answers: 1-2 visits in the last 6 months Score: 16 Date Signed: 01/10/2019 04:35 PM Electronically Signed By:Antoinette Sullivan RN
--- NOTE | 2019-01-10 16:38 | ASMTDCNOTE ---
Case Management Discharge Discharge Order Complete? Answers: Yes Patient to Obtain Answers: Other Notes: [facility] Medications Transportation Arranged Answers: [facility] W/C Transport will Pick (Date 01/10/2019 05:30 PM & Time) Case Management Transport Answers: Yes Form Complete Faxed Final Orders Answers: Yes Agency/Facility Transfer Answers: Yes Report Printed & Faxed to Receiving Agency Family Notified Answers: No Notes: in room Discharge Comments Notes: [facility] Auth received, given to Jenni at [facility]. All orders sent to [facility], confirmed with Gagescvivian received. RN to give 1 dose of Macrobid this evening before transfer d/t late d/c. [facility] to schedule [facility] transport at 17:30. RN to also call report. Date Signed: 01/10/2019 04:37 PM Electronically Signed By:Antoinette Sullivan RN
[2019-01-10] MEDS: INSULIN REGULAR HUMAN 100 UNIT/ML UNIT SC SCH (16:57)
--- NOTE | 2019-01-10 17:00 | GDS ---
[f rep st] DISCHARGE SUMMARY DISCHARGE DIAGNOSES: 1. Metabolic encephalopathy. 2. Sepsis. 3. Hypoglycemia. 4. Diabetes. 5. Anemia of chronic disease. 6. BPH with indwelling Garcia. 7. Catheter-associated urinary tract infection present on admission. HOSPITAL COURSE: Please see admission history and physical by Dr. Amina Zuluaga. The patient present ed with symptoms of hypoglycemia. He actually improved after being given a meal, but his blood sugar s continued to fall. He does have a bit of an unusual insulin regimen with regular insulin in the ev ening. He subsequently developed a fever with rigors. He had a urinalysis with pyuria consistent wi th an indwelling Garcia and a chest x-ray showed possible bibasilar infiltrates. The patient received ceftriaxone with clinical improvement, including change of his Garcia catheter. On the first hospita l day, he was doing well. He was observed overnight. Repeat chest x-ray showed left lower lobe hazi ness with crackles at the left base. This was considered consistent with a diagnosis of pneumonia. Notably, his urine grew out enterococcus. His antibiotics were changed from ceftriaxone to levofloxa babak for the pneumonia and Macrobid for the urinary tract infection. His Agrcia is due to be changed a gain about February 03. Discharge medications are unchanged other than the addition of antibiotics. /[id number]/MODL
--- NOTE | 2019-01-10 17:02 | ASMTCMCOM ---
CM Note CM Note Notes: Correction to pick-up time: Fred Cuellar will be picking-up at 1800, arranged by Rosie Go. RAMAN aware. Date Signed: 01/10/2019 04:57 PM Electronically Signed By:Antoinette Sullivan RN
[2019-01-10] MEDS ORDERED: NITROFURANTOIN MACROBID 100 MG CAP PO SCH (21:00)
== END 2019-01-10 18:02 | DRG 698 ==
LOC: EDUNIT# → F2N 23:55 → F3N 01-09 18:39
PROVIDERS: ADMIT Family Medicine; ATTEND Internal Medicine
PROC: 5A09357 Assistance with Respiratory Ventilation, Less than 24 Consecutive Hours, Continuous Positive Airway Pressure (ICD-10-PCS; principal; 2019-01-08)
DX: T83.511A Infection and inflammatory reaction due to indwelling urethral catheter, initial encounter (principal); N39.0 Urinary tract infection, site not specified; A41.81 Sepsis due to Enterococcus; J18.0 Bronchopneumonia, unspecified organism; E11.649 Type 2 diabetes mellitus with hypoglycemia without coma; Z79.4 Long term (current) use of insulin; Z79.84 Long term (current) use of oral hypoglycemic drugs; G93.41 Metabolic encephalopathy; I50.89 Other heart failure; E87.79 Other fluid overload; J96.01 Acute respiratory failure with hypoxia; I11.0 Hypertensive heart disease with heart failure; N40.1 Benign prostatic hyperplasia with lower urinary tract symptoms; N32.0 Bladder-neck obstruction; N18.9 Chronic kidney disease, unspecified; D63.8 Anemia in other chronic diseases classified elsewhere; M19.91 Primary osteoarthritis, unspecified site; Z96.652 Presence of left artificial knee joint; Z87.891 Personal history of nicotine dependence
CPT/HCPCS: 82435-PO; 82565-PO; 82947-PO; 84132-PO; 84295-PO; 84520-PO; 85014-ER; 96365; 96366; 97162-GP; 97166-GO; 97530-GP; J0696; J1650; J1815; J1885; J1940

== ENCOUNTER 2019-02-16 02:39 | Emergency (ER) | payer OTHER ==
--- NOTE | 2019-02-16 03:01 | EDPHY ---
H & P Stated Complaint: scott hasn't drained in 6 hours Time Seen by Provider: 02/16/19 02:53 HPI/ROS: HPI The patient presents with decreased urine output from his Scott catheter for the last 6 hr. He has a chronic Scott in place for BPH. It was last changed February 03. He is feeling some abdominal discomfort. His tried to flush the catheter and was able to flush it but did not have any return of urine.. REVIEW OF SYSTEMS 10 systems were reviewed and negative with the exception of the elements mentioned in the history of present illness. PMHx: BPH with chronic Scott, diabetes, anemia, recent hospitalization for hypoglycemia Soc Hx: Lives at home with his PHYSICAL General Appearance: Alert, no distress Eyes: Pupils equal and round no pallor or injection ENT, Mouth: Mucous membranes moist Respiratory: There are no retractions, lungs are clear to auscultation Cardiovascular: Regular rate and rhythm Gastrointestinal: Abdomen is soft and slightly distended, no masses, bowel sounds normal Neurological: A&O, moves all extremities Skin: Warm and dry, no rashes Musculoskeletal: Neck is supple non tender Extremities: symmetrical, full range of motion Psychiatric: Patient is oriented X 3, there is no agitation Source: Patient, Family Exam Limitations: No limitations - Personal History Current Tetanus/Diphtheria Vaccine: Yes Current Tetanus Diphtheria and Acellular Pertussis (TDAP): Yes - Medical/Surgical History Hx Asthma: No Hx Chronic Respiratory Disease: No Hx Diabetes: Yes Hx Cardiac Disease: Yes Hx Renal Disease: No Hx Cirrhosis: No Hx Alcoholism: No Hx HIV/AIDS: No Hx Splenectomy or Spleen Trauma: No Other PMH: DM, HTN, CHF, femur fx, non functioning bladder - Social History Smoking Status: Former smoker Constitutional: Initial Vital Signs Temperature (C) 36.8 C 02/16/19 02:45 Heart Rate 75 02/16/19 02:45 Respiratory Rate 16 02/16/19 02:45 Blood Pressure 191/87 H 02/16/19 02:45 O2 Sat (%) 94 02/16/19 02:45 O2 Delivery Mode Room Air Allergies/Adverse Reactions: Penicillins Allergy (Verified 02/16/19 02:49) lycsyne Allergy (Uncoded 02/16/19 02:49) Home Medications: Medication Instructions Recorded Acetaminophen [Tylenol 325mg (*)] 650 mg PO Q4HRS PRN 06/09/16 Aspirin [Aspirin 81mg (*)] 81 mg PO DAILY 04/13/16 Finasteride [Proscar 5 MG (*)] 5 mg PO DAILY 04/13/16 Herbals/Supplements -Info Only 1 ea PO DAILY 04/13/16 Insulin NPH Human [humULIN N 100 10 units SC DAILY@12 04/13/16 UNITS/ML (*)] Insulin NPH Human [humULIN N 100 60 units SC DAILY 04/13/16 UNITS/ML (*)] Insulin Regular, Human [HUMULIN R] 20 unit SC DAILY18 04/13/16 Multivitamins [Multivitamin (*)] 1 each PO DAILY 04/13/16 Simvastatin [Zocor] 20 mg PO HS 04/13/16 Tamsulosin HCl [Flomax 0.4 MG (*)] 0.8 mg PO HS 04/13/16 amLODIPine BESYLATE [Norvasc 10 mg 10 mg PO DAILY 04/13/16 (*)] Acetic Acid Irr Soln 0.25% 100 ml IRR DAILY 01/09/19 Ascorbic Acid [Vitamin C 500 mg 500 mg PO DAILY 01/09/19 (*)] Bisacodyl [Dulcolax] 10 mg RC DAILY PRN 01/09/19 Carvedilol [Coreg (*)] 25 mg PO BID 01/09/19 Cholecalciferol Vit D3 [Vitamin D3 5,000 units PO DAILY 01/09/19 (*)] Cyanocobalamin [Vitamin B12 (*)] 1,000 mcg PO DAILY 01/09/19 Ferrous Sulfate [Ferrous Sulf 325 325 mg PO DAILY 01/09/19 MG (*)] Magnesium Hydroxide [Milk of 2,400 mg PO DAILY PRN 01/09/19 Magnesia] Polyethylene Glycol 3350 [Miralax 17 gm PO DAILY PRN 01/09/19 17 gm (*)] Medical Decision Making Differential Diagnosis: 73-year-old male presents from home with decreased urine output from his Scott catheter for the last 6 hr. There is no bleeding, tried to flush the catheter and was able to, however there was no return of urine. Plan for catheter placement here in the emergency department. 800 mL of urine returned. Patient felt much better and was discharged. Departure - Departure Disposition: Home, Routine, Self-Care Clinical Impression: Scott catheter problem Qualifiers: Encounter type: initial encounter Qualified Code(s): T83.9XXA - Unspecified complication of genitourinary prosthetic device, implant and graft, initial encounter Condition: Good Instructions: Scott Catheter Placement and Care (ED) Referrals: ISABELA IRWIN NP [Primary Care Provider] - As per Instructions
[2019-02-16 03:32] VITALS: BP 176/87
== END 2019-02-16 03:35 | disposition home or self-care (01) ==
PROC: 0T9B70Z Drainage of Bladder with Drainage Device, Via Natural or Artificial Opening (ICD-10-PCS; principal; 2019-02-16)
DX: T83.9XXA Unspecified complication of genitourinary prosthetic device, implant and graft, initial encounter (principal); I10 Essential (primary) hypertension; E11.9 Type 2 diabetes mellitus without complications; Z79.4 Long term (current) use of insulin

== ENCOUNTER 2019-03-13 20:50 | Emergency (ER) | payer OTHER ==
[2019-03-13 20:57] VITALS: BP 201/56
--- NOTE | 2019-03-13 21:03 | EDPHY ---
H & P Time Seen by Provider: 03/13/19 20:57 HPI/ROS: CHIEF COMPLAINT: Garcia catheter problem HISTORY OF PRESENT ILLNESS: Indwelling catheter last changed 2-3 weeks ago presents with feeling like he might be plugged up. He feels he gets "paroxysms of pain" around the catheter site. Feels like is blocked up, just this afternoon. Does not have any other acute medical complaints. REVIEW OF SYSTEMS: Eye: no change in vision ENT: no sore throat Cardiac: no chest pain or syncope Pulmonary: no cough or SOB Abdomen: no vomiting, diarrhea, abdominal pain Musculoskeletal: no back pain Skin: no rash Neuro: no headache Constitutional: no fever : HPI A comprehensive 10 point review of systems is otherwise negative aside from elements mentioned in the history of present illness. PAST MEDICAL HISTORY: Includes diabetes, hypertension, CHF, femur fracture, hip replacement, indwelling Garcia. Social history: Former smoker, retired General Appearance: Alert and conversant, cooperative. Eyes: No scleral icterus. ENT, Mouth: Normal mucous membranes. Respiratory: Normal respiratory effort, breath sounds equal, lungs are clear to auscultation. Cardiovascular: Regular rate and rhythm. Gastrointestinal: Suprapubic tenderness, catheter in place, no rebound or guarding. Neurological: Alert, face symmetric, normal motor and sensory in extremities. Skin: Warm and dry, no rashes. Musculoskeletal: Bilateral peripheral edema without calf tenderness. Psychiatric: Not agitated. Emergency Department course/MDM: 650+ in the bladder, unable to flush the catheter, plan for catheter change. 2158: Large amount of urine out, patient feels better after Garcia catheter change, urinalysis does not suggest high likelihood of infection. Doubt pyelonephritis, renal failure, bladder trauma with hematuria. Smoking Status: Former smoker Constitutional: Initial Vital Signs Temperature (C) 37.2 C 03/13/19 20:56 Heart Rate 90 03/13/19 20:56 Respiratory Rate 16 03/13/19 20:56 Blood Pressure 201/56 H 03/13/19 20:56 O2 Sat (%) 96 03/13/19 20:56 O2 Delivery Mode Room Air Allergies/Adverse Reactions: Penicillins Allergy (Verified 02/16/19 02:49) lycsyne Allergy (Uncoded 02/16/19 02:49) Home Medications: Medication Instructions Recorded Acetaminophen [Tylenol 325mg (*)] 650 mg PO Q4HRS PRN 04/13/16 Aspirin [Aspirin 81mg (*)] 81 mg PO DAILY 04/13/16 Finasteride [Proscar 5 MG (*)] 5 mg PO DAILY 04/13/16 Herbals/Supplements -Info Only 1 ea PO DAILY 04/13/16 Insulin NPH Human [humULIN N 100 10 units SC DAILY@12 04/13/16 UNITS/ML (*)] Insulin NPH Human [humULIN N 100 60 units SC DAILY 04/13/16 UNITS/ML (*)] Insulin Regular, Human [HUMULIN R] 20 unit SC DAILY18 04/13/16 Multivitamins [Multivitamin (*)] 1 each PO DAILY 04/13/16 Simvastatin [Zocor] 20 mg PO HS 04/13/16 Tamsulosin HCl [Flomax 0.4 MG (*)] 0.8 mg PO HS 04/13/16 amLODIPine BESYLATE [Norvasc 10 mg 10 mg PO DAILY 04/13/16 (*)] Acetic Acid Irr Soln 0.25% 100 ml IRR DAILY 01/09/19 Ascorbic Acid [Vitamin C 500 mg 500 mg PO DAILY 01/09/19 (*)] Bisacodyl [Dulcolax] 10 mg RC DAILY PRN 01/09/19 Carvedilol [Coreg (*)] 25 mg PO BID 01/09/19 Cholecalciferol Vit D3 [Vitamin D3 5,000 units PO DAILY 01/09/19 (*)] Cyanocobalamin [Vitamin B12 (*)] 1,000 mcg PO DAILY 01/09/19 Ferrous Sulfate [Ferrous Sulf 325 325 mg PO DAILY 01/09/19 MG (*)] Magnesium Hydroxide [Milk of 2,400 mg PO DAILY PRN 01/09/19 Magnesia] Polyethylene Glycol 3350 [Miralax 17 gm PO DAILY PRN 01/09/19 17 gm (*)] Medical Decision Making - Data Points Laboratory Results: 03/13/19 21:40 Urine Color PALE YELLOW Urine Appearance CLEAR Urine pH 6.0 (5.0-7.5) Ur Specific [place] 1.010 (1.002-1.030) Urine Protein 2+ H (NEGATIVE) Urine Ketones NEGATIVE (NEGATIVE) Urine Blood 3+ H (NEGATIVE) Urine Nitrate NEGATIVE (NEGATIVE) Urine Bilirubin NEGATIVE (NEGATIVE) Urine Urobilinogen NEGATIVE EU EU (0.2-1.0) Ur Leukocyte Esterase TRACE H (NEGATIVE) Urine RBC 50-182 /hpf H /hpf (0-3) Urine WBC 3-5 /hpf H /hpf (0-3) Ur Epithelial Cells NONE SEEN /lpf /lpf (NONE-1+) Urine Bacteria 1+ /hpf H /hpf (NONE SEEN) Urine Mucus TRACE /lpf /lpf (NONE-1+) Urine Glucose 1+ H (NEGATIVE) Medications Given: Discontinued Medications Lidocaine (Uroject Lidocaine 2% Jelly) 20 ml UR EDNOW ONE Stop: 03/13/19 21:28 Last Admin: 03/13/19 21:28 Dose: 20 ml Departure - Departure Disposition: Home, Routine, Self-Care Clinical Impression: Acute retention of urine Garcia catheter problem Qualifiers: Encounter type: initial encounter Qualified Code(s): T83.9XXA - Unspecified complication of genitourinary prosthetic device, implant and graft, initial encounter Condition: Good Instructions: Garcia Catheter Placement and Care (ED) Referrals: CICI IRWIN [Other] - As per Instructions
[2019-03-13] MEDS ORDERED: LIDOCAINE 2% JELLY 20 ML (UROJECT) ONE (21:20)
[2019-03-13] MEDS ORDERED: LIDOCAINE 2% JELLY 20 ML (UROJECT) UR ONE (21:27)
== END 2019-03-13 22:28 | disposition home or self-care (01) ==
DX: T83.098A Other mechanical complication of other urinary catheter, initial encounter (principal); R33.9 Retention of urine, unspecified; E11.9 Type 2 diabetes mellitus without complications; I11.0 Hypertensive heart disease with heart failure; I50.9 Heart failure, unspecified; Z87.81 Personal history of (healed) traumatic fracture; Z87.891 Personal history of nicotine dependence; Z96.649 Presence of unspecified artificial hip joint

== ENCOUNTER 2019-03-24 17:58 | Emergency (ER) | payer OTHER ==
[2019-03-24 18:12] VITALS: BP 184/99
--- NOTE | 2019-03-24 18:39 | EDPHY ---
H & P Stated Complaint: fell getting out of bed denies injury but displaced scott catheter Time Seen by Provider: 03/24/19 18:20 HPI/ROS: CHIEF COMPLAINT: Possibly displaced Scott catheter HISTORY OF PRESENT ILLNESS: 73-year-old male history of urinary retention arrives via private vehicle his concerned that he may have displaces catheter when accidentally caught on object earlier today. His Stat Lock became dislodged from his skin. Notes decreased urinary output ever since. Denies: Abdominal pain, chest pain, back pain, direct testicular or genital trauma. PRIMARY CARE PROVIDER: REVIEW OF SYSTEMS: 10 systems reviewed and negative with the exception of the elements mentioned in the history of present illness PAST MEDICAL & SURGICAL HISTORY: urinary retention SOCIAL HISTORY: PHYSICAL EXAM (Prior to examination, patient consented to physical exam, hands were washed and my usual and customary physical exam procedures followed) 1) GENERAL: Well-developed, well-nourished, alert and oriented. Appears to be in no acute distress. 2) HEAD: Normocephalic, atraumatic 3) HEENT: Pupils equal, round, reactive to light bilaterally. Sclera anicteric. Nasopharynx, oropharynx, clear, no lesions. MoistDry mucous membranes. Ears bilaterally with normal tympanic membranes. 4) NECK: Full range of motion, no meningeal signs. 5) LUNGS: Clear auscultation bilaterally, no wheezes, no rhonchi, no retractions. 6) HEART: Regular rate and rhythm, no murmur, no heave, no gallop. 7) ABDOMEN: No guarding, no rebound, no focal tenderness, negative McBurney's, negative Santiago's, negative Rovsing's, negative peritoneal sign, 8) MUSCULOSKELETAL: Moving all extremities, no focal areas of tenderness, no obvious trauma. No peripheral edema or discoloration. 9) BACK: No CVA tenderness, no midline vertebral tenderness, no fluctuance, no step-off, no obvious trauma, no visual or palpable abnormality. 10) SKIN: No rash, no petechiae. [11) : Normal male external genitalia, the stat lock is displaced from his leg, there is no james-scott urine or bleeding. DIFFERENTIAL DIAGNOSIS: In no particular order including but not limited to clogged Scott catheter, dislodged Scott catheter, urinary retention - Personal History Current Tetanus Diphtheria and Acellular Pertussis (TDAP): Yes - Medical/Surgical History Hx Asthma: No Hx Chronic Respiratory Disease: No Hx Diabetes: Yes Hx Cardiac Disease: Yes Hx Renal Disease: No Hx Cirrhosis: No Hx Alcoholism: No Hx HIV/AIDS: No Hx Splenectomy or Spleen Trauma: No Other PMH: DM, HTN, CHF, femur fx, non functioning bladder, HIP REPLACEMENT - Social History Smoking Status: Former smoker Constitutional: Initial Vital Signs Temperature (C) 36.7 C 03/24/19 18:10 Heart Rate 69 03/24/19 18:10 Respiratory Rate 19 03/24/19 18:10 Blood Pressure 184/99 H 03/24/19 18:10 O2 Sat (%) 99 03/24/19 18:10 O2 Delivery Mode Room Air Allergies/Adverse Reactions: Penicillins Allergy (Verified 03/24/19 18:09) lycsyne Allergy (Uncoded 02/16/19 02:49) Home Medications: Medication Instructions Recorded Acetaminophen [Tylenol 325mg (*)] 650 mg PO Q4HRS PRN 04/13/16 Aspirin [Aspirin 81mg (*)] 81 mg PO DAILY 04/13/16 Finasteride [Proscar 5 MG (*)] 5 mg PO DAILY 04/13/16 Herbals/Supplements -Info Only 1 ea PO DAILY 04/13/16 Insulin NPH Human [humULIN N 100 10 units SC DAILY@12 04/13/16 UNITS/ML (*)] Insulin NPH Human [humULIN N 100 60 units SC DAILY 04/13/16 UNITS/ML (*)] Insulin Regular, Human [HUMULIN R] 20 unit SC DAILY18 04/13/16 Multivitamins [Multivitamin (*)] 1 each PO DAILY 04/13/16 Simvastatin [Zocor] 20 mg PO HS 04/13/16 Tamsulosin HCl [Flomax 0.4 MG (*)] 0.8 mg PO HS 04/13/16 amLODIPine BESYLATE [Norvasc 10 mg 10 mg PO DAILY 04/13/16 (*)] Acetic Acid Irr Soln 0.25% 100 ml IRR DAILY 01/09/19 Ascorbic Acid [Vitamin C 500 mg 500 mg PO DAILY 01/09/19 (*)] Bisacodyl [Dulcolax] 10 mg RC DAILY PRN 01/09/19 Carvedilol [Coreg (*)] 25 mg PO BID 01/09/19 Cholecalciferol Vit D3 [Vitamin D3 5,000 units PO DAILY 01/09/19 (*)] Cyanocobalamin [Vitamin B12 (*)] 1,000 mcg PO DAILY 01/09/19 Ferrous Sulfate [Ferrous Sulf 325 325 mg PO DAILY 01/09/19 MG (*)] Magnesium Hydroxide [Milk of 2,400 mg PO DAILY PRN 01/09/19 Magnesia] Polyethylene Glycol 3350 [Miralax 17 gm PO DAILY PRN 01/09/19 17 gm (*)] Medical Decision Making ED Course/Re-evaluation: 6:50 p.m.: Nursing staff performed bladder scanning with subsequent 640 cc of urine. The catheter was manipulated and new stat lock replaced with 600 cc of urine released and patient feeling improvement. Plan will be discharge. Patient feels comfortable being discharged. All questions and concerns addressed by myself. Patient given my usual and customary discharge precautions and instructions regarding their clinical impression. Care of patient under supervision of secondary supervising physician Dr Mccrary . Departure - Departure Disposition: Home, Routine, Self-Care Clinical Impression: Scott catheter problem Qualifiers: Encounter type: initial encounter Qualified Code(s): T83.9XXA - Unspecified complication of genitourinary prosthetic device, implant and graft, initial encounter Condition: Good Instructions: Scott Catheter Placement and Care (ED) Additional Instructions: If you are Scott catheter does not flow or if you develop abdominal pain return to the ER immediately for re-evaluation Referrals: CICI IRWIN [Other] - 2-3 days, call for appt.
== END 2019-03-24 19:00 | disposition home or self-care (01) ==
PROC: 4A0D7LZ Measurement of Urinary Volume, Via Natural or Artificial Opening (ICD-10-PCS; principal; 2019-03-24)
DX: T83.028A Displacement of other urinary catheter, initial encounter (principal); R33.9 Retention of urine, unspecified